=== PATIENT | male | born 1950 | race Caucasian/White ===

== ENCOUNTER 2022-05-23 03:13 | Outpatient (CLI) | payer MEDICARE, SELFPAY ==
[2022-05-23 10:18] LABS: Abs Immature Grans 0.01 10^3/uL (0.0-0.06); Absolute Basophil Count 0.01 10^3/uL (0.0-0.2); Absolute Eosinophil Count 0.07 10^3/uL (0.0-0.7); Absolute Lymphocyte Count 1.97 10^3/uL (1.2-3.4); Absolute Monocyte Count 0.54 10^3/uL (0.1-0.8); Absolute Neutrophil Count 3.38 10^3/uL (1.2-6.7); Basophils % 0.2; Eosinophils % 1.2; HCT 43.3 % (40.0-50.0); HGB 14.8 g/dL (13.5-17.5); Immature Grans % 0.2; Lymphocytes % 32.9; MCH 32.3 pg (27.0-33.0); MCHC 34.2 % (32.0-36.0); MCV 95 fL (80-95); Neutrophils % 56.5; RBC 4.58 10^6/uL (4.36-5.78); RDW 11.7 % (11.8-14.1); RDW-SD 40.3 fL; WBC 5.98 10^3/uL (4.4-10.8)
[2022-05-23 10:32] LABS: ALT 43 U/L (16-63); AST 30 U/L (15-37); Albumin 4.1 g/dL (3.4-5.0); Alkaline Phosphatase 52 U/L (46-116); Anion Gap 5.1 mmol/L (3-11); BUN 25 mg/dL (7-18); Bilirubin, Total 0.8 mg/dL (0.2-1.0); CO2 28.9 mmol/L (21.0-32.0); CREATININE 1.2 mg/dL (0.70-1.30); Chloride 107 mmol/L (98-107); Estimated GFR 65.06 (mL/min/1.73m2); Glucose 116 mg/dL (74-106); Potassium 4.5 mmol/L (3.5-5.1); Sodium 141 mmol/L (136-145); Total Protein 7.4 g/dL (6.4-8.2)
[2022-05-23 10:35] LABS: Diff Comment Diff Reviewed; RBC Morphology Normal
[2022-05-24 12:34] LABS: HIV 1 RNA Qualitative Undetected copies/mL (Undetected)
[2022-05-25 09:33] LABS: 4/8 Ratio 0.35 (>=0.90); Absolute CD3 1957 Cells/uL (840-2669); Absolute CD8 1410 Cells/uL (154-1097); CD3 89 % (56-84); CD4 22 % (31-64); CD8 64 % (9-39)
== END 2022-05-23 03:14 | disposition home or self-care (01) ==
PROVIDERS: PCP Internal Medicine Infectious Disease; Visit Provider Nurse Practitioner Family
DX: B20 Human immunodeficiency virus [HIV] disease (principal); Z79.899 Other long term (current) drug therapy
CPT/HCPCS: 36415; 80053; 87389; 87536; 85025; 86359; 86360

== ENCOUNTER → 2023-12-02 10:54 | Outpatient (BNVA) | payer MEDICARE, SELFPAY | PROVIDERS: PCP Internal Medicine Infectious Disease; Referring Provider Internal Medicine Infectious Disease; Visit Provider Nurse Practitioner Gerontology | DX: N40.1 Benign prostatic hyperplasia with lower urinary tract symptoms (principal); N13.8 Other obstructive and reflux uropathy; R97.20 Elevated prostate specific antigen [PSA]; N43.3 Hydrocele, unspecified | CPT/HCPCS: 51798; 81003; 99205 ==

== ENCOUNTER 2023-12-02 12:52 | Outpatient (CLI) | payer MEDICARE, SELFPAY ==
[2023-12-02 22:31] LABS: PSA, Diagnostic 6.5 ng/mL (<=6.5)
== END 2023-12-02 12:53 | disposition home or self-care (01) ==
LOC: LBO 12:53
PROVIDERS: PCP Internal Medicine Infectious Disease; Visit Provider Nurse Practitioner Gerontology
DX: N40.1 Benign prostatic hyperplasia with lower urinary tract symptoms (principal); N13.8 Other obstructive and reflux uropathy; R97.20 Elevated prostate specific antigen [PSA]; R39.9 Unspecified symptoms and signs involving the genitourinary system; N43.3 Hydrocele, unspecified
CPT/HCPCS: 36415; 84153

== ENCOUNTER → 2024-11-30 10:32 | Outpatient (BNVA) | payer MEDICARE, SELFPAY | PROVIDERS: PCP Internal Medicine Infectious Disease; Referring Provider Internal Medicine Infectious Disease; Visit Provider Nurse Practitioner Gerontology | DX: N40.1 Benign prostatic hyperplasia with lower urinary tract symptoms (principal); N13.8 Other obstructive and reflux uropathy; R97.20 Elevated prostate specific antigen [PSA]; N43.3 Hydrocele, unspecified | CPT/HCPCS: 99213; 51798 ==